=== PATIENT | female | born 1965 | race Hispanic/Latino ===

== ENCOUNTER → 2019-06-05 | Day surgery (SDC) | payer BC ==
[~2019-06-05] MED LIST: ALPHA LIPOIC A200 M1 PO; CENTRUM SILVER1 EAC3 PO; EYE VITAMINS PO; GLIMEPIRIDE2 MG PO; LIDOCAINE HCL 2% LOCAL INJ 5 ML SDV VIAL INJ ONE; METFORMIN HCL500 MG PO; MIDAZOLAM HCL 2 MG/2 ML VIAL ONE; OMEGA 3 1,0001 EACH PO; OZEMPIC SQ; PROPOFOL IV EMULSION 10 MG/ML 50 ML VIAL ONE; TRESIBA SQ; TRULICITY SC; VITAMIN C1000 MG PEG; VITAMIN D400 UNIT PO
--- OUTSIDE RECORDS SUMMARY | 2019-06-05 11:17 | XMS REPORT ---
[facility] Address Unknown Phone Unavailable Care Team Providers Care Breaker Engineer Name Role Phone Unavailable Unavailable Payers Payer Name Policy Type Policy Number Effective Date Expiration Date Problems This patient has no known problems. Allergies, Adverse Reactions, Alerts Allergy Name Allergy Type Status Severity Reaction(s) Onset Date Inactive Date Treating Clinician Comments No Known Intolerances DA Active U 2010-07-28 00:00:00 Medications This patient has no known medications. Results Test Description Test Time Test Comments Text Results Atomic Results Result Comments BREAST ULTRASOUND RIGHT 2019-03-07 07:49:43 - BREAST ULTRASOUND RIGHTULTRASOUND OF RIGHT BREAST AND RIGHT AXILLA: 03/07/2019CLINICAL: 6 month follow up/ prior exam. Comparison is made to exam dated 09/06/2018 ultrasound - [facility]-. Color flow, real-time, and Doppler ultrasound of the right breast and axilla were performed. Gracia scale images of the real-time examination were reviewed. No new abnormalities were seen sonographically in the right breast or the right axilla. The cyst at 9 o'clock has decreased in size. IMPRESSION: BENIGN There is no sonographic evidence of malignancy. Resume annual screening mammography in one year. Angel Webster M.D. et/:03/07/2019 07:49:43 copy to: Caren Kuhn MD, ph: [phone], fax: [phone] Technologist: Yoselyn PARMAR, [facility]-FWletter sent: BIRADS 1-2 Normal Ultrasound BI-RADS: 2 Benign SCR MAMM BILATERAL NANCY CAD DIGITAL W/AUGMENTATION 2018-08-27 14:51:46 - SCR MAMM BILATERAL NANCY CAD DIGITAL W/AUGMENTATIONBILATERAL DIGITAL SCREENING MAMMOGRAM 3D/2D WITH CAD WITH AUGMENTATION: 08/27/2018CLINICAL: Asymptomatic. Digital breast tomosynthesis was performed in addition to routine CC and MLO views. Current mammographic images were evaluated by either a [employer] M-Vu or a [employer] ImageChecker CAD (computer aided detection system). Comparison is made to exams dated 08/23/2017 mammogram, 08/16/2016 mammogram - [facility]-, and 07/01/2015 mammogram - [facility]. There are scattered fibroglandular tissues in both breasts. Bilateral retropectoral saline implants are intact. A 6 mm focal asymmetry, approximately 6 cm from the nipple, in the left lateral breast best seen on CC slice #19 and MLO slice #22. No suspicious mass, architectural distortion, malignant type calcification, or lymph node abnormality detected in the left breast. IMPRESSION: INCOMPLETE ASSESSMENT: ADDITIONAL IMAGING EVALUATION RECOMMENDEDA 6 mm focal asymmetry in the right lateral breast, approximately 6 cm from the nipple. Spot compression tomosynthesis and possible ultrasound are recommended at this time.Darwin Grant M.D. ss/:08/27/2018 14:51:46 Tuber Helper: Leighann PARMAR, [facility]-letter sent: Additional Imaging Mammogram BI-RADS: 0 Indeterminate SCR MAMM BILATERAL NANCY CAD DIGITAL W/AUGMENTATION 2018-08-27 14:51:46 AMENDMENT: 09/06/2018 Viky Greene M.D. Report correction: The 6 mm focal asymmetry approximately 6 cm from the nipple is in the RIGHT lateral breast and is best seen on RCC image slice #19 and RMLO image slice #22.Impression:A 6 mm focal asymmetry is noted in the right lateral breast, as above. Spot compression tomosynthesis and possible ultrasound are recommended at this time.Amended BI-RA DS: 0 Indeterminate letter sent: Additional Imaging
[2019-06-05 16:30] VITALS: BP 129/60
--- NOTE | 2019-06-05 21:20 | Operative Report ---
DATE OF PROCEDURE: 06/05/2019 SURGEON: Roger Griffin MD PROCEDURE: EGD with biopsies. INDICATIONS FOR EGD: Upper abdominal pain, exacerbated with meals, nausea, and bloating. MEDICATIONS: The patient was done under MAC. Please see anesthesiologist's note. PROCEDURE IN DETAIL: With the patient in left lateral decubitus position, a flexible fiberoptic Olympus gastroscope was introduced into the esophagus under direct visualization without any difficulty. There was some patchy erythema noted in distal esophagus. The scope was then advanced with ease into the stomach. Mucosa overlying the antrum and the body revealed some patchy erythema and low-grade to moderate edema, and biopsies were obtained and sent to stain for H pylori. Pylorus was of normal contour and shape, intubated with ease and the scope was advanced all the way to the second portion of the duodenum. Biopsies were obtained from the proximal second portion and duodenal bulb to rule out sprue. The scope was then withdrawn back into the stomach and retroflexed. The mucosa overlying the fundus and the cardia appeared to be within normal limits. The scope was then straightened out, it was subsequently withdrawn. The patient tolerated the procedure well. IMPRESSION: 1. Distal esophagitis, mild. 2. Gastritis, biopsied. Biopsies sent to stain for Helicobacter pylori. 3. Rule out sprue. PLAN: Follow up histology. Initiate Protonix 40 mg one p.o. q.a.m. before meals. Roger Griffin MD [facility] [place]/ARMIDAL /[id number] cc: MD Caren Cuba MD
== END | disposition home or self-care (01) ==
LOC: OR 11:09
PROVIDERS: ATTEND Internal Medicine Gastroenterology
DX: R11.0 Nausea (principal); R14.0 Abdominal distension (gaseous); K29.80 Duodenitis without bleeding; R12 Heartburn; K21.9 Gastro-esophageal reflux disease without esophagitis; K44.9 Diaphragmatic hernia without obstruction or gangrene; R10.10 Upper abdominal pain, unspecified; E11.9 Type 2 diabetes mellitus without complications; J45.909 Unspecified asthma, uncomplicated; I10 Essential (primary) hypertension; Z79.4 Long term (current) use of insulin; Z01.810 Encounter for preprocedural cardiovascular examination; K59.00 Constipation, unspecified; K20.8 Other esophagitis; K29.60 Other gastritis without bleeding; K63.5 Polyp of colon; Z68.35 Body mass index [BMI] 35.0-35.9, adult; E78.1 Pure hyperglyceridemia
CPT/HCPCS: 36415; 43239; 82948; 93005; J2001; J2250; J2704

== ENCOUNTER → 2022-11-03 | Day surgery (SDC) | payer BC ==
[~2022-11-03] MED LIST changes: +FENTANYL CITRATE/PF 100MCG/2 ML INJ ONE; +METOCLOPRAMIDE HCL 10 MG/2ML VIAL ONE; +PROPOFOL IV EMULSION 10 MG/ML 20 ML VIAL ONE; +PROPOFOL IV EMULSION 10 MG/ML 50 ML VIAL IV ONE; -PROPOFOL IV EMULSION 10 MG/ML 50 ML VIAL ONE
[2022-11-03 10:25] VITALS: BP 133/76
== END | disposition home or self-care (01) ==
LOC: OR 08:00
PROVIDERS: ATTEND Internal Medicine Gastroenterology
DX: K21.9 Gastro-esophageal reflux disease without esophagitis (principal); D12.3 Benign neoplasm of transverse colon; K29.70 Gastritis, unspecified, without bleeding; K22.10 Ulcer of esophagus without bleeding; K44.9 Diaphragmatic hernia without obstruction or gangrene; K59.09 Other constipation; Z98.84 Bariatric surgery status; Z71.3 Dietary counseling and surveillance; E11.9 Type 2 diabetes mellitus without complications; J45.909 Unspecified asthma, uncomplicated; Z01.810 Encounter for preprocedural cardiovascular examination; Z79.84 Long term (current) use of oral hypoglycemic drugs; Z79.85 Long-term (current) use of injectable non-insulin antidiabetic drugs; Z68.30 Body mass index [BMI] 30.0-30.9, adult
CPT/HCPCS: 36415; 43239; 45380; 45385; 82948; 93005; C9113; J2001; J2250; J2704 ×2; J2765; J3010